=== PATIENT | female | born 2000 | race Hispanic/Latino ===

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

== ENCOUNTER 2019-12-21 14:45 | Inpatient (IN) | payer MEDICAID ==
[~2019-12-21 14:45] MED LIST: ACET1TAB12 PO; PREN1CAP31 PO
[2019-12-25] MEDS ORDERED: LACTATED RINGERS 1000ML 1,000 ML IV SCH (06:45)
[2019-12-25] MEDS ORDERED: CEFAZOLIN SODIUM 1 GM VIAL IVP PRN (06:45)
[2019-12-25 07:51] LABS: HEMATOCRIT 36.5 % (36-48); MEAN CORPUSCULAR HEMOGLOBIN 28.5 pg (27.0-33.0); MEAN CORPUSCULAR HGB CONC 32.9 g/dL (32.0-36.0); MEAN CORPUSCULAR VOLUME 86.7 fL (80-100); RED BLOOD CELL COUNT(AUTO) 4.21 MIL/uL (4.00-5.50); RED CELL DISTRIBUTION WIDTH 13.2 % (11.0-15.5); WHITE BLOOD COUNT (AUTO) 11.7 K/uL (4.8-10.8)
[2019-12-25] MEDS ORDERED: CALDOLOR 800MG+NS 250ML 250 ML IV PRN (09:45)
[2019-12-25] MEDS ORDERED: PHENYLEPHRINE HCL 10 MG/ML 1ML VIAL IV ONE (09:45)
[2019-12-25] MEDS ORDERED: ONDANSETRON HCL 4 MG/2 ML VIAL ONE ×3 (09:45→16:34)
[2019-12-25] MEDS ORDERED: OXYTOCIN 10 USP UNITS/ML ONE (09:45)
[2019-12-25] MEDS ORDERED: DEXAMETHASONE SOD PHOSPHATE 10MG/ML 1ML VIAL ONE (09:45)
[2019-12-25] MEDS ORDERED: EPHEDRINE SULFATE 50 MG/ML AMPULE ONE (09:45)
[2019-12-25] MEDS ORDERED: DURAMORPH PF1 MG/ML 10ML AMP IV ONE (09:46)
[2019-12-25] MEDS ORDERED: OXYTOCIN-LR 20 UNITS/1000 ML 1,000 ML IV ONE ×2 (10:09→11:14)
[2019-12-25 10:12] LABS: RAPID PLASMA REAGIN NONREACTIVE (NONREACTIVE)
[2019-12-25 12:31] VITALS: BP 126/76
[2019-12-25] MEDS ORDERED: CEFAZOLIN SODIUM 1 GM VIAL IVP SCH (13:00)
[2019-12-25] MEDS ORDERED: PROMETHAZINE HCL 25 MG/ML 1ML AMPULE IM PRN (13:00)
[2019-12-25] MEDS ORDERED: MEPERIDINE-PF 75 MG/ML SYG IM PRN (13:00)
[2019-12-25] MEDS ORDERED: SODIUM CHLORIDE 0.9% 10 ML VIAL IVP PRN (13:00)
[2019-12-25] MEDS ORDERED: OXYTOCIN-LR 20 UNITS/1000 ML 1,000 ML IV PRN (13:00)
[2019-12-25] MEDS ORDERED: DEXTROSE 5 %-0.45 % NACL 1,000 ML IV PRN (13:00)
[2019-12-25 16:25] VITALS: BP 108/71
[2019-12-25] MEDS: CEFAZOLIN SODIUM 1 GM VIAL IVP SCH (17:28)
[2019-12-25 20:19] VITALS: BP 110/69
[2019-12-26 00:12] VITALS: BP 139/83
[2019-12-26] MEDS: CEFAZOLIN SODIUM 1 GM VIAL IVP SCH (02:43)
[2019-12-26 03:24] VITALS: BP 135/77
[2019-12-26] MEDS ORDERED: DIPH,PERTUSS(ACELL),TET VAC/PF 0.5 ML VIAL IM ONE (04:30)
--- NOTE | 2019-12-26 06:50 | NUR ---
IGLESIAS CATHETER DISCONTINUED, PT. INST TO CALL FOR ASSIST BEFORE GETTING OUT OF BED, VERBALIZED UNDERSTANDING. Addendum: 12/26/19 at 0724 by JERICHO LOPEZ RN RN Amended: Links added.
[2019-12-26 07:01] LABS: MEAN CORPUSCULAR HEMOGLOBIN 29.4 pg (27.0-33.0); MEAN CORPUSCULAR HGB CONC 33.7 g/dL (32.0-36.0); MEAN CORPUSCULAR VOLUME 87.3 fL (80-100); RED BLOOD CELL COUNT(AUTO) 2.28 MIL/uL (4.00-5.50); RED CELL DISTRIBUTION WIDTH 13.4 % (11.0-15.5)
[2019-12-26 07:15] LABS: HEPATITIS Bs ANTIGEN SCREEN P Negative (Negative)
[2019-12-26 07:25] LABS: HEMATOCRIT 19.9 % (36-48)
[2019-12-26 07:34] VITALS: BP 126/71
[2019-12-26] MEDS ORDERED: LANOLIN 30GM OINTMENT TP PRN (07:45)
[2019-12-26] MEDS ORDERED: BISACODYL 10 MG SUPP.RECT RC PRN (07:45)
[2019-12-26] MEDS ORDERED: IBUPROFEN 800 MG TAB PO SCH (07:45)
[2019-12-26] MEDS ORDERED: HYDROCODONE/ACETAMINOPHEN 5/325 MG TAB PO PRN (07:45)
[2019-12-26] MEDS ORDERED: SIMETHICONE 80 MG TAB.CHEW PO PRN (07:45)
[2019-12-26] MEDS ORDERED: ACETAMINOPHEN EXTRA STRENGTH 500 MG TABLET PO PRN (07:45)
[2019-12-26] MEDS ORDERED: SODIUM CHLORIDE 0.9% 10 ML VIAL IVP PRN (07:45)
[2019-12-26] MEDS ORDERED: ACETAMINOPHEN-CODEINE 300/30MG TAB PO PRN (07:45)
[2019-12-26] MEDS ORDERED: DIPH,PERTUSS(ACELL),TET VAC/PF 0.5 ML VIAL IM SCH (08:15)
--- NOTE | 2019-12-26 08:20 | NUR ---
ASSESSMENT: RECEIVED RESTING IN BED, EXPLAINED POC AND UNDERSTANDING VERBALIZED, CALL MORAN AT HER SIDE. DENIES DIZZINESS OR WEAKNESS. EXPLAINED ANEMIA, BLOOD LOSS DURING C/S. POSSIBLE DIZZINESS WHEN SHE GETS UP.
--- NOTE | 2019-12-26 08:30 | NUR ---
LOW H&H: REPORTED CBC OF THIS AM TO DR PRASAD, WBC 21.0, H&H OF 6.7,19.9, AND ASYMPTOMATIC, NO NEW ORDERS.
--- NOTE | 2019-12-26 08:52 | NUR ---
ABD INCISION: REMOVED ABD DRESSING, LOW TRANSVERSE INCISION WITH BROCK D&I. ASSISSTED TO BEDSIDE AND UP TO BEDSIDE CHAIR, STEADY GAIT,DENIES DIZZINESS OR WEAKNESS. EATING BREAKFAST.
[2019-12-26] MEDS ORDERED: DOCUSATE SODIUM 100 MG CAP PO SCH (09:00)
--- NOTE | 2019-12-26 09:47 | NUR ---
DIET: LAN 100% OF REG DIET.
--- NOTE | 2019-12-26 10:45 | NUR ---
ASSESSMENT: DR PRASAD HERE AND SBAR REPORT GIVEN, REVIEWED LABS, ASSESSED PT AND DISCUSSED LABS OF THIS AM, LOW H&H, WILL REPEAT AT 1200 NOON AND IF NO CHANGES AND PT REMAINS ASYMPTOMATIC WILL DISCHARGE HOME, PT AGREES WITH POC.
[2019-12-26 10:52] VITALS: BP 94/56
--- NOTE | 2019-12-26 11:10 | NUR ---
ACTIVITY: AMB IN ROOM.
--- NOTE | 2019-12-26 11:30 | NUR ---
HYGEINE: TOOK SHOWER
--- NOTE | 2019-12-26 11:57 | NUR ---
ACTIVITY: AMB IN HALLWAY
[2019-12-26 12:44] LABS: MEAN CORPUSCULAR HEMOGLOBIN 29.4 pg (27.0-33.0); MEAN CORPUSCULAR HGB CONC 33.7 g/dL (32.0-36.0); MEAN CORPUSCULAR VOLUME 87.4 fL (80-100); RED BLOOD CELL COUNT(AUTO) 2.31 MIL/uL (4.00-5.50); RED CELL DISTRIBUTION WIDTH 13.7 % (11.0-15.5); WHITE BLOOD COUNT (AUTO) 19.2 K/uL (4.8-10.8)
[2019-12-26 12:46] LABS: HEMATOCRIT 20.2 % (36-48)
--- NOTE | 2019-12-26 12:55 | NUR ---
LABS: CBC RESULTS OF 19.2, 6.8,20.2,[address] PRASAD, NO NEW ORDERS, TO PROCEED WITH DISCHARGE ORDERS.
--- NOTE | 2019-12-26 13:28 | NUR ---
DISCHARGE: DISCHARGE INSTRUCTIONS GIVEN TO PT AND SPOUSE ON SELF CARE POST R C/S, INCISION CARE, ANEMIA, DIETS TO FOLLOW,REVIEWED RX'S FOR HOME AND TO FOLLOW UP WITH DR William HEADLEY ON 12/31 AT 1:40 OR SOONER IF NEEDED. UNDERSTANDING VERBALIZED AND COPIES OF ALL INSTRUCTIONS GIVEN TO PT.
--- NOTE | 2019-12-26 15:35 | NUR ---
DISCHARGE: DISCHARGED HOME WITH HER BABY TO PRIVATE CAR WITH HER .
== END 2019-12-26 15:35 | disposition home or self-care (01) | DRG 540 ==
LOC: LDH 12-25 05:56 → WSH 12-25 12:30
PROVIDERS: ADMIT Obstetrics & Gynecology; ATTEND Obstetrics & Gynecology
PROC: 10D00Z1 Extraction of Products of Conception, Low, Open Approach (ICD-10-PCS; principal; 2019-12-26)
PROC: 3E0234Z Introduction of Serum, Toxoid and Vaccine into Muscle, Percutaneous Approach (ICD-10-PCS; 2019-12-26)
DX: O34.211 Maternal care for low transverse scar from previous cesarean delivery (principal); Z37.0 Single live birth; Z3A.38 38 weeks gestation of pregnancy; Z23 Encounter for immunization; O69.81X0 Labor and delivery complicated by cord around neck, without compression, not applicable or unspecified
CPT/HCPCS: 36415; 59510; 85027; 86592; 86701; 86850; 86900; 86901; 87340; 87390; 90715; A4344; G0378; J0690; J1100; J1741; J2175; J2274; J2370; J2405; J2550; J2590; J3490; J7120; U0003